=== PATIENT | female | born 1955 | race Caucasian/White ===

== ENCOUNTER → 2023-08-07 13:49 | Outpatient (REF) | payer MEDICARE, BC, SELFPAY | LOC: HWRAD 13:49 | PROVIDERS: ATTENDING PHYSICIAN Family Medicine | DX: M54.9 Dorsalgia, unspecified (principal); M54.14 Radiculopathy, thoracic region | CPT/HCPCS: 72072 ==

== ENCOUNTER 2023-09-20 09:07 | Outpatient (RCR) | payer BC, MEDICARE, SELFPAY | END 2023-09-20 23:59 | disposition home or self-care (01) | LOC: RPT 09:07 | PROVIDERS: FAMILY PHYSICIAN Internal Medicine | DX: M54.12 Radiculopathy, cervical region (principal); M48.10 Ankylosing hyperostosis [Forestier], site unspecified; M47.24 Other spondylosis with radiculopathy, thoracic region; M79.602 Pain in left arm; M54.2 Cervicalgia; M54.6 Pain in thoracic spine; G62.9 Polyneuropathy, unspecified; R29.3 Abnormal posture; M62.81 Muscle weakness (generalized) | CPT/HCPCS: 97010; 97110; 97112; 97140; 97162; 97530 ==

== ENCOUNTER → 2023-09-20 12:53 | Outpatient (REF) | payer BC, MEDICARE, SELFPAY ==
[2023-09-20 16:13] LABS: % Basophils 0.3 % (0-2); % Eosinophils 1.7 % (0-6); % Immature Granulocytes 0.4 % (0-0.5); % Lymphocytes 20.6 % (20.5-51.1); Absolute Eosinophils 0.1 10^3/uL (0-0.7); Absolute Lymphocytes 1.6 10^3/uL (1.2-3.4); Absolute Monocytes 0.5 10^3/uL (0.1-0.6); Absolute Neutrophils 5.3 10^3/uL (1.4-6.5); Hematocrit 38.3 % (37.0-47.0); Hemoglobin 13.1 g/dL (12.0-16.0); Mean Corp Hgb Conc. 34.2 g/dL (33.0-37.0); Mean Corpuscular Hgb 33.4 pg (27.0-31.0); Mean Corpuscular Volume 97.7 fL (81.0-99.0); Nucleated Red Blood Cells % 0 %; Platelet Count 240 10^3/uL (130-400); Red Blood Cell Count 3.92 10^6/uL (4.20-5.40); Red Cell Dist. Width 13.1 % (11.5-14.5); White Blood Cell Count 7.5 10^3/uL (4.8-10.8)
[2023-09-20 16:22] LABS: ALT (SGPT) 54 U/L (0-35); AST (SGOT) 65 U/L (14-36); Albumin 4.3 g/dl (3.5-5.0); Alkaline Phosphatase 71 U/L (38-126); Blood Urea Nitrogen 12 mg/dl (7-17); Calcium 9.3 mg/dl (8.4-10.2); Carbon Dioxide 32 mmol/L (22-30); Chloride 102 mmol/L (98-107); Glucose 78 mg/dl (70-99); Potassium 3.6 mmol/L (3.5-5.1); Sodium 138 mmol/L (135-145); Total Bilirubin 0.5 mg/dl (0.2-1.3); eGFR > 60.00
[2023-09-20 16:34] LABS: NT-proBNP 250 pg/ml
[2023-09-20 16:52] LABS: TSH Reflex To Free T4 0.54 uIU/ml (0.47-4.68)
== END ==
LOC: HWLAB 12:53
PROVIDERS: ATTENDING PHYSICIAN Internal Medicine
DX: R42 Dizziness and giddiness (principal); R26.89 Other abnormalities of gait and mobility; R53.1 Weakness; R53.83 Other fatigue
CPT/HCPCS: 36415; 80053; 83880; 84443; 85025

== ENCOUNTER 2023-10-17 14:58 | Outpatient (RCR) | payer BC, MEDICARE, SELFPAY | END 2023-10-17 23:59 | disposition home or self-care (01) | LOC: RPT 14:58 | PROVIDERS: FAMILY PHYSICIAN Internal Medicine | DX: M54.12 Radiculopathy, cervical region (principal); M47.24 Other spondylosis with radiculopathy, thoracic region; R20.0 Anesthesia of skin; R29.3 Abnormal posture | CPT/HCPCS: 97010; 97110; 97112; 97140; 97530 ==

== ENCOUNTER → 2023-11-09 11:34 | Outpatient (REF) | payer BC, MEDICARE, SELFPAY | LOC: HWRAD 11:34 | PROVIDERS: ATTENDING PHYSICIAN Student in an Organized Health Care Education/Training Program; FAMILY PHYSICIAN Internal Medicine; REFERRING PHYSICIAN Specialist | DX: M54.12 Radiculopathy, cervical region (principal); M48.10 Ankylosing hyperostosis [Forestier], site unspecified; M47.24 Other spondylosis with radiculopathy, thoracic region | CPT/HCPCS: 72125; 72128 ==

== ENCOUNTER 2023-11-23 11:23 | Outpatient (RCR) | payer BC, MEDICARE, SELFPAY | END 2023-11-23 23:59 | disposition home or self-care (01) | LOC: RPT 11:23 | PROVIDERS: FAMILY PHYSICIAN Internal Medicine | DX: M54.12 Radiculopathy, cervical region (principal); M48.10 Ankylosing hyperostosis [Forestier], site unspecified; M79.602 Pain in left arm; M54.2 Cervicalgia; M54.6 Pain in thoracic spine; G62.9 Polyneuropathy, unspecified; R29.3 Abnormal posture | CPT/HCPCS: 97010; 97110; 97112; 97140; 97530 ==

== ENCOUNTER → 2023-12-20 07:34 | Outpatient (REF) | payer BC, MEDICARE, SELFPAY | LOC: EMG 07:34 | PROVIDERS: ATTENDING PHYSICIAN Psychiatry & Neurology Neurology; FAMILY PHYSICIAN Internal Medicine | DX: R29.898 Other symptoms and signs involving the musculoskeletal system (principal) | CPT/HCPCS: 95886; 95910 ==

== ENCOUNTER → 2024-01-07 06:39 | Outpatient (REF) | payer BC, MEDICARE, SELFPAY | LOC: HWRAD 06:39 | PROVIDERS: ATTENDING PHYSICIAN Psychiatry & Neurology Neurology; FAMILY PHYSICIAN Internal Medicine | DX: R29.898 Other symptoms and signs involving the musculoskeletal system (principal); G54.0 Brachial plexus disorders | CPT/HCPCS: 76536 ==

== ENCOUNTER → 2024-04-21 10:24 | Outpatient (REF) | payer MEDICARE, OTHER, SELFPAY | LOC: RCS 10:24 | PROVIDERS: ATTENDING PHYSICIAN Internal Medicine; FAMILY PHYSICIAN Internal Medicine | DX: I50.32 Chronic diastolic (congestive) heart failure (principal); I42.8 Other cardiomyopathies; I34.0 Nonrheumatic mitral (valve) insufficiency; I35.1 Nonrheumatic aortic (valve) insufficiency; Z95.2 Presence of prosthetic heart valve | CPT/HCPCS: 93306 ==

== ENCOUNTER → 2024-05-15 09:27 | Outpatient (REF) | payer MEDICARE, OTHER, SELFPAY | LOC: RAD 09:27 | PROVIDERS: ATTENDING PHYSICIAN Internal Medicine Hematology & Oncology; FAMILY PHYSICIAN Internal Medicine | DX: M85.80 Other specified disorders of bone density and structure, unspecified site (principal); Z78.0 Asymptomatic menopausal state | CPT/HCPCS: 77080 ==

== ENCOUNTER → 2024-07-23 15:09 | Outpatient (REF) | payer MEDICARE, OTHER, SELFPAY ==
[2024-07-23 16:13] LABS: ALT (SGPT) 39 U/L (0-35); AST (SGOT) 57 U/L (14-36); Albumin 4.8 g/dl (3.5-5.0); Alkaline Phosphatase 90 U/L (38-126); Blood Urea Nitrogen 12 mg/dl (7-17); Calcium 9.4 mg/dl (8.4-10.2); Carbon Dioxide 33 mmol/L (22-30); Chloride 97 mmol/L (98-107); Glucose 82 mg/dl (70-99); HDL Cholesterol 101 mg/dl; LDL Cholesterol, Calculated 37 mg/dl; Potassium 3.8 mmol/L (3.5-5.1); Sodium 135 mmol/L (135-145); Total Cholesterol 163 mg/dl (50-199); Total Protein 7.2 g/dl (6.3-8.2); Triglyceride 125 mg/dl (10-149); Very Low Density Lipoprotein 25 mg/dl (0-30); eGFR > 60.00
== END ==
LOC: REG 15:09
PROVIDERS: ATTENDING PHYSICIAN Internal Medicine; FAMILY PHYSICIAN Internal Medicine
DX: E78.5 Hyperlipidemia, unspecified (principal); I63.9 Cerebral infarction, unspecified
CPT/HCPCS: 36415; 80053; 80061

== ENCOUNTER → 2025-03-13 15:04 | Outpatient (REF) | payer MEDICARE, OTHER, SELFPAY ==
[2025-03-13 16:26] LABS: Hematocrit 38.5 % (37.0-47.0); Hemoglobin 12.6 g/dL (12.0-16.0); Mean Corp Hgb Conc. 32.7 g/dL (33.0-37.0); Mean Corpuscular Volume 101.0 fL (81.0-99.0); Nucleated Red Blood Cells % 0 %; Platelet Count 226 10^3/uL (130-400); Red Cell Dist. Width 15.0 % (11.5-14.5)
== END ==
LOC: REG 15:04
PROVIDERS: ATTENDING PHYSICIAN Internal Medicine
DX: T14.8XXA Other injury of unspecified body region, initial encounter (principal)
CPT/HCPCS: 36415; 85025

== ENCOUNTER → 2025-05-07 10:58 | Outpatient (REF) | payer MEDICARE, OTHER, SELFPAY | LOC: RCS 10:58 | PROVIDERS: ATTENDING PHYSICIAN Internal Medicine; FAMILY PHYSICIAN Internal Medicine | DX: I50.32 Chronic diastolic (congestive) heart failure (principal); I42.8 Other cardiomyopathies; Z95.2 Presence of prosthetic heart valve | CPT/HCPCS: 93306 ==